=== PATIENT | male | born 1950 | race Caucasian/White ===

== ENCOUNTER → 2016-04-14 | Outpatient (CLI) | payer OTHER, MEDICARE ==
[~2016-04-14] MED LIST: ASCA500 PO; CAYENNE PEPPER PO; CZR50 PO; MELO15TA4 PO; TADA20TA PO
--- NOTE | 2016-04-14 12:27 | DIAGNOSTIC IMAGING REPORT ---
MRI OF THE LUMBAR SPINE WITHOUT IV CONTRAST CLINICAL HISTORY: Low back pain and lower extremity radiculopathy. COMPARISON STUDY: MRI of the lumbar spine dated 03/23/2012. TECHNIQUE: MRI of the lumbar spine is performed utilizing various T1 and T2-weighted sequences in the axial and sagittal planes. IV contrast was not administered for this examination. FINDINGS: Lumbar spine: Vertebral body height and alignment are maintained throughout the lumbar spine. There is straightening of the lumbar lordosis. Small anterior osteophytes are seen throughout. The transverse and spinous processes appear intact. Chronic degenerative endplate change is seen at L3-L4 and L5-S1. Mild endplate edema is also noted at these levels. No destructive lesion is seen. Hemangiomas are identified in the bodies of T12, L3, L4, and S3. Intervertebral discs: There is degenerative disc desiccation throughout the lumbar spine. There is advanced loss of height at L5-S1. Moderate loss of height is present at L4-L5. Paraspinal cord: The visualized spinal cord is normal in morphology and signal intensity. The conus medullaris terminates at the L1-L2 interspace. The nerve roots of the cauda equina are normal in morphology. L1-L2: There is minimal posterior disc bulge. The central canal and neural foramina are widely patent. L2-L3: There is a small posterior disc bulge with annular fissure. The central canal is clear. The neural foramina are patent. Mild facet arthropathy is of no consequence. L3-L4: There is posterior disc bulge eccentric to the left with annular fissure. In conjunction with hypertrophy of the ligamentum flavum there is minimal acquired compromise of the central canal at this level. The minimum AP diameter measures up to 9.5 mm. There is bilateral subarticular stenosis, left greater than right with probable impingement on the exiting left L3 nerve root. Facet arthropathy is of no consequence. The neural foramina appear clear. L4-L5: There is a large posterior disc bulge eccentric to the left with annular fissure. In conjunction with hypertrophy of the ligamentum flavum there is mild acquired compromise of the central canal at this level with a minimum AP diameter of 9 mm. There is bilateral subarticular stenosis, left greater than right with probable impingement on the exiting bilateral L4 nerve roots. The disc bulge on the left likely abuts the transiting left L5 nerve root. Facet arthropathy causes mild bilateral neural foraminal stenosis. L5-S1: There is broad-based posterior disc bulge with annular fissure eccentric to the left. The central canal is clear. There is bilateral subarticular stenosis, left greater than right with probable impingement on the exiting bilateral L5 nerve roots. This also likely abuts the transiting left-sided sacral nerve roots. Facet arthropathy causes moderate right greater than left neural foraminal stenosis. Soft tissues: The paraspinous soft tissues are within normal limits. The partially imaged retroperitoneal structures are grossly unremarkable but incompletely evaluated. IMPRESSION: 1. Multilevel lumbosacral spondylosis as above with mild acquired compromise of the central canal at L3-L4 and L4-L5. See discussion for detailed level by level analysis. This has modestly progressed from the 2012 examination. 2. Degenerative disc disease with associated endplate edema at several levels. See above. Dictated: 04/14/2016 10:55 AM Transcribed: 04/14/2016 12:26 PM [email or web address] Electronically signed by: Willy Olson M.D. 04/14/2016 12:43 PM Dictated Date/Time: 04/14/2016 10:55 AM
== END | disposition home or self-care (01) ==
LOC: C.MRI 10:00
PROVIDERS: ATTEND Internal Medicine
DX: M51.9 Unspecified thoracic, thoracolumbar and lumbosacral intervertebral disc disorder (principal); M54.5 Low back pain; M54.10 Radiculopathy, site unspecified

== ENCOUNTER → 2017-06-04 | Outpatient (CLI) | payer OTHER, MEDICARE ==
[~2017-06-04] MED LIST changes: +MELO-83 PO; -MELO15TA4 PO
[2017-06-04 12:20] LABS: BASO % 0.4 %; BASO ABS # 0.02 K/uL (0-0.2); EOS % 6.7 %; EOS ABS # 0.33 K/uL (0-0.5); HEMATOCRIT 44.3 % (42-52); IG# 0.01 K/uL (0.00-0.02); LYMPH ABS # 1.42 K/uL (1.2-3.4); MEAN CELL VOLUME 86.4 fL (80-100); MEAN CORPUSCULAR HEMOGLOBIN 29.2 pg (25-34); MEAN CORPUSCULAR HGB CONC 33.9 g/dl (32-36); MEAN PLATELET VOLUME 11.1 fL (7.4-10.4); MONO % 9.8 %; MONO ABS # 0.48 K/uL (0.11-0.59); NEUT % 53.9 %; NEUT ABS # 2.63 K/uL (1.4-6.5); PLATELET COUNT 162 K/uL (130-400); RED CELL DISTRIBUTION WIDTH CV 13.8 % (11.5-14.5); RED CELL DISTRIBUTION WIDTH SD 43.5 fL (36.4-46.3); WHITE BLOOD COUNT 4.89 K/uL (4.8-10.8)
[2017-06-04 12:46] LABS: ALBUMIN 3.7 gm/dl (3.4-5.0); ALT/SGPT 45 U/L (12-78); BLOOD UREA NITROGEN 25 mg/dl (7-18); CALCIUM 8.5 mg/dl (8.5-10.1); CARBON DIOXIDE 27 mmol/L (21-32); CHOLESTEROL 159 mg/dl (0-200); CREATININE 0.88 mg/dl (0.60-1.40); GLUCOSE 85 mg/dl (70-99); POTASSIUM 4.2 mmol/L (3.5-5.1); SODIUM 140 mmol/L (136-145)
[2017-06-04 12:49] LABS: ALKALINE PHOSPHATASE 80 U/L (45-117); AST/SGOT 24 U/L (15-37); LDL CHOLESTEROL CALCULATED 104 mg/dl
== END | disposition home or self-care (01) ==
LOC: C.LABBFT 07:41
PROVIDERS: ATTEND Physician Assistant Medical
DX: Z12.5 Encounter for screening for malignant neoplasm of prostate (principal); I10 Essential (primary) hypertension; E78.00 Pure hypercholesterolemia, unspecified; R97.20 Elevated prostate specific antigen [PSA]